=== PATIENT | male | born 1970 | race Caucasian/White ===

== ENCOUNTER 2025-02-25 00:08 | Emergency (ER) | payer SELFPAY ==
[~2025-02-25] VITALS: Ht 167.6 cm; Wt 74.1 kg
[2025-02-25 00:12] VITALS: BP 133/76; TEMP 36.8; O2SAT 100
[2025-02-25 00:15] VITALS: PULSE 89; RESP 16; O2SAT 100
== END 2025-02-25 03:25 | disposition left against medical advice (07) ==
LOC: ER 00:08
DX: R10.9 Unspecified abdominal pain (principal); Z53.21 Procedure and treatment not carried out due to patient leaving prior to being seen by health care provider